=== PATIENT | female | born 2000 | race Caucasian/White ===

== ENCOUNTER 2022-06-28 13:23 | Emergency (ER) | payer BC ==
[~2022-06-28] VITALS: Ht 170.1 cm; Wt 65.8 kg
[2022-06-28] MEDS ORDERED: CYCLOBENZAPRINE10 MG PO (17:00)
[2022-06-28] MEDS ORDERED: NAPROSYN500 MG PO (17:00)
== END 2022-06-28 17:11 | disposition home or self-care (01) ==
LOC: ED 13:23
DX: S09.90XA Unspecified injury of head, initial encounter (principal); M79.604 Pain in right leg; V80.010A Animal-rider injured by fall from or being thrown from horse in noncollision accident, initial encounter; Y93.52 Activity, horseback riding; Y92.39 Other specified sports and athletic area as the place of occurrence of the external cause; Y99.8 Other external cause status